=== PATIENT | female | born 1990 ===

== ENCOUNTER 2020-11-25 03:28 | Outpatient (CLI) | payer BC, SELFPAY | END 2020-11-25 03:29 | disposition home or self-care (01) | LOC: LBO 03:28 | PROVIDERS: PCP Nurse Practitioner Family; Visit Provider Obstetrics & Gynecology Gynecology | DX: O03.9 Complete or unspecified spontaneous abortion without complication (principal) | CPT/HCPCS: 36415; 88230; 88262 ==

== ENCOUNTER 2021-02-11 11:31 | Outpatient (CLI) | payer BC, SELFPAY ==
[2021-02-11 12:15] LABS: HCG Quant, Pregnancy 1 mIU/mL (1-3)
== END 2021-02-11 11:32 | disposition home or self-care (01) ==
LOC: LBO 11:37
PROVIDERS: PCP Nurse Practitioner Family; Visit Provider Nurse Practitioner Family
DX: N92.6 Irregular menstruation, unspecified (principal)
CPT/HCPCS: 36415; 84702